=== PATIENT | female | born 1990 | race Caucasian/White ===

== ENCOUNTER 2023-05-04 11:26 | Emergency (ER) | payer OTHER, SELFPAY ==
--- NOTE | ~2023-05-04 | XR_ITS ---
EXAMINATION: XR KNEE, LEFT CLINICAL INFORMATION: Right knee pain, popping COMPARISON: None available. TECHNIQUE: Four views of the left knee. FINDINGS: No fracture or joint effusion. Alignment is anatomic. Joint spaces are maintained. No abnormal soft tissue calcification. XR/XR knee LT 3V IMPRESSION: Unremarkable plain radiographs of the right knee.
[2023-05-04 11:40] VITALS: BP 131/62; PULSE 98; RESP 18; TEMP 36.3; O2SAT 99; BMI 32.7
--- NOTE | 2023-05-04 12:51 | ED.LOWEXIN ---
HPI - Extremity Injury (Lower) General Chief Complaint: Extremity Injury, Lower Stated Complaint: l knee pain Time Seen by Provider: 05/04/23 11:53 Source: patient and RN notes reviewed Mode of arrival: ambulatory Limitations: no limitations History of Present Illness HPI Narrative: This is a 32-year-old female presenting to the emergency department with complaints of left knee pain and popping since last week. Patient denies any recent trauma or injury to her left knee however often has to climb ladders and stairs and notices worsening pain with this. No pain with weight-bearing. Patient denies any fevers or chills. No history of knee injuries in the past. Denies taking any medications at home to treat her current symptoms. No other complaints or concerns at this time. MD complaint: knee injury Onset (ago): week(s) Type of Injury: unknown Relieving factors: nothing Exacerbating factors: movement and palpation Associated symptoms: snap/pop sensation Other symptoms: none Related Data Allergies Allergy/AdvReac Type Severity Reaction Status Date / Time No Known Allergies Allergy Verified 05/04/23 11:39 Review of Systems Review of Systems: Yes all other systems are reviewed and are negative [facility] Past Medical History Attestation statement: The following information was validated with the patient. Social History Social History Advance Directives: No Physical Exam Vital Signs: Vital Signs: Last Vital Signs Temp 97.4 F 05/04/23 11:40 Pulse 98 05/04/23 11:40 Resp 18 05/04/23 11:40 BP 131/62 05/04/23 11:40 Pulse Ox 99 05/04/23 11:40 O2 Del Method Room Air 05/04/23 11:40 BMI result Body Mass Index 32.7 Const: Other: General: Awake, alert, and oriented X3. No acute distress. HEENT: Normal inspection CVS: Normal heart rate and rhythm. Pulses normal. Respiratory: No respiratory distress Skin: Warm, dry, no rashes noted to exposed skin. Normal skin color. Normal skin turgor. Extremities: Left knee, normal to inspection, no overlying erythema, edema or warmth. tenderness palpation along the superior aspect of the patella, no patellar ballottement, no pain with varus and valgus strain, no pain with anterior-posterior drawer. Distal sensation circulation intact. Full range of motion of the left knee without any crepitus. Neuro: Oriented X 3. No motor deficit. No sensory deficit. Medical Decision Making Medical Decision Making MDM Narrative: This is a 32-year-old female presenting to the emergency department with complaints of atraumatic left knee pain since last week. She is popping sensation in her knee, worsening with bending movements. Does not cause her pain with ambulation. X-ray was obtained, no bony deformities or abnormalities seen. Left knee with no obvious deformity or swelling. Full range of motion, no clicking or popping felt on exam. Patellar ballottement. Negative anterior posterior drawer, no pain with varus and valgus strain. Will treat with Bruno wrap, ibuprofen Tylenol, rest, and given orthopedic referral for follow-up. Encourage strengthening exercises for quad and calf as she may have patellar tracking difficulties causing her to have movement of the patella, causing her to have these symptoms. Patient understands and agrees with plan. Patient given return precautions. Stable for discharge. Differential Diagnosis Differential Diagnoses: The differential diagnosis associated with the presentation includes Internal derangement of the left knee, knee sprain, strain, contusion, fracture Radiology Impression Discussion of test interpretation with radiology: I have reviewed the radiologist's reading. Radiologist Impression: EXAMINATION: XR KNEE, LEFT CLINICAL INFORMATION: Right knee pain, popping COMPARISON: None available. TECHNIQUE: Four views of the left knee. FINDINGS: No fracture or joint effusion. Alignment is anatomic. Joint spaces are maintained. No abnormal soft tissue calcification. XR/XR knee LT 3V IMPRESSION: Unremarkable plain radiographs of the right knee. Dictated By: Corey Sharma MD Discharge Plan Discharge Clinical Impression: Knee pain, left Patient Disposition: Home, Self-Care Instructions: Knee Pain (ED), R.I.C.E. Treatment (ED) Additional Instructions: You presented to the emergency department due to left knee pain today. Your x-ray did not show any broken bones. Your symptoms may be attributed to your knee cap moving around the joint. Referrals: [facility] [place] [facility] [Provider Group] Stand Alone Forms: Work/School Release Interventions: ED Discharge Assessment Last Done: 05/04/23 13:46 Discharge Date/Time: 05/04/23 13:50
== END 2023-05-04 13:50 | disposition home or self-care (01) ==
PROVIDERS: Emergency Provider Emergency Medicine Emergency Medical Services
DX: M25.562 Pain in left knee (principal)
CPT/HCPCS: 73562; 99282; 99283